=== PATIENT | male | born 1970 | race Caucasian/White ===

== ENCOUNTER 2018-01-14 11:10 | Emergency (ER) | payer OTHER ==
[~2018-01-14] VITALS: Ht 177.8 cm; Wt 70.0 kg
[~2018-01-14 11:10] MED LIST: Z.0.NO CURRENT MEDS
[2018-01-14 11:24] VITALS: BP 158/80; PULSE 97; RESP 18; TEMP 98.5; O2SAT 99
[2018-01-14] MEDS ORDERED: IBUPROFEN 800 MG TAB PO ONE (13:45)
--- NOTE | 2018-01-14 14:03 | RADRPT ---
EXAM DATE/TIME: 01/14/2018 13:47 [place] COMPARISON: No previous studies available for comparison. INDICATIONS : Ran over great toe on right foot with a laundry cart yesterday. MEDICAL HISTORY : None. SURGICAL HISTORY : None. ENCOUNTER: Initial ACUITY: 1 day PAIN SCORE: 10/10 LOCATION: Right Foot, great toe. FINDINGS: Examination of the first digit of the right foot demonstrates no evidence of fracture or dislocation. No radiopaque foreign bodies are seen. The soft tissues are intact. CONCLUSION: No acute disease. Bib Jenkins MD on January 14, 2018 at 14:01 Board Certified Radiologist. This report was verified electronically.
[2018-01-14] MEDS ORDERED: IBUP1TAB7 PO (14:13)
--- NOTE | 2018-01-14 14:13 | PD ---
HPI Chief Complaint: Injury Time Seen by Provider: 13:25 Travel History International Travel<30 days: No Contact w/Intl Traveler<30days: No Traveled to known affect area: No History of Present Illness HPI 47-year-old male presents to the emergency department with complaint of right great toe pain after running over it with a cart yesterday. Denies paresthesias , loss of sensation to the affected toe. Denies fever, vomiting. Has not taken any medication or trying treatments to alleviate symptoms. Rates pain 7/ 10. Worse with palpation and ambulation. Better at rest. Primary care provider is the [facility]. No known allergies. History of diabetes mellitus. Has no other medical complaints. No other modifying factors or associated signs and symptoms. PFSH Past Medical History Diminished Hearing: No Social History Alcohol Use: No Tobacco Use: No Substance Use: No Allergies-Medications (Allergen,Severity, Reaction): Coded Allergies: No Known Allergies (Verified , 12/24/12) Reported Meds & Prescriptions Reported Meds & Active Scripts Active Ibuprofen 800 Mg Tab 800 Mg PO Q6HR PRN Reported No Current Meds (Miscellaneous Medication) Misc Review of Systems Except as stated in HPI: all other systems reviewed are Neg Physical Exam Narrative GENERAL: Well-nourished, well-developed patient, in no acute distress SKIN: Warm and dry. HEAD: Atraumatic. Normocephalic. EYES: Pupils equal and round. No scleral icterus. No injection or drainage. ENT: Mucosa pink and moist. Airway patent. NECK: Trachea midline. CARDIOVASCULAR: Regular rate. RESPIRATORY: No accessory muscle use. GASTROINTESTINAL: Flat. MUSCULOSKELETAL: Right great toe is edematous and with tenderness on palpation; toenail intact and there is some dried blood coming from underneath the toenail ; no subungual hematoma noted; no obvious deformities; toe is pink and warm; no open wounds noted. Noted no obvious deformities. No clubbing. No cyanosis. No edema. NEUROLOGICAL: Awake and alert. Oriented 3. No obvious cranial nerve deficits. Motor grossly within normal limits. Normal speech. PSYCHIATRIC: Appropriate mood and affect; insight and judgment normal. Data Data Last Documented VS Vital Signs Date Time Temp Pulse Resp B/P (MAP) Pulse Ox O2 Delivery O2 Flow Rate FiO2 01/14/18 11:24 98.5 97 18 158/80 (106) 99 Orders Orders Ibuprofen (Motrin) (01/14/18 13:45) Toe (Min 2vws) (01/14/18 ) Ed Discharge Order (01/14/18 14:14) [facility] Medical Decision Making Medical Screen Exam Complete: Yes Emergency Medical Condition: Yes Medical Record Reviewed: Yes Differential Diagnosis Toe fracture, toe contusion, toe injury, toe sprain, subungual hematoma Narrative Course 47-year-old male with right great toe injury. Ibuprofen and right great toe x- ray ordered. 1415: Right great toe x-ray concluded Toe X-Ray 01/14/18 0000 Signed Impressions: Service Date/Time: Sunday, January 14, 2018 13:47 - CONCLUSION: No acute disease. Bib Jenkins MD Discussed x-ray findings with the patient. Ibuprofen prescribed for home. Instructed patient to follow up with primary care provider. Patient verbalizes understanding and agreement with treatment plan. Patient is medically cleared and stable for discharge. Discussed reasons to return to the emergency department. Patient agrees with treatment plan. The patients vital signs are stable and the patient is stable for outpatient follow-up and treatment. Patient discharged home, stable and in no acute distress. 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 Primary Care Physician Patient Instructions: Contusion in Adults (ED), General Instructions Departure Forms: Tests/Procedures, Work Release Enter return to work date: January 17, 2018 Additional Instructions: Ibuprofen or Tylenol as directed and as needed for pain and information Ice to affected toe to reduce pain and inflammation Elevate extremity to reduce pain and inflammation Avoid aggravating activity Increase activity as tolerated Follow-up with primary care provider Follow-up with podiatry as needed Return to the emergency department immediately with worsening of symptoms Med/Other Pt SpecificInfo: Prescription(s) given Scripts Ibuprofen (Ibuprofen) 800 Mg Tab 800 MG PO Q6HR Y for PAIN, #30 TAB 0 Refills Prov: Aruna Clark 01/14/18 Disposition: 01 DISCHARGE HOME Condition: Stable Aruna Clark January 14, 2018 14:13
== END 2018-01-14 14:40 | disposition home or self-care (01) ==
LOC: NEPK 11:10
DX: S99.921A Unspecified injury of right foot, initial encounter (principal); X58.XXXA Exposure to other specified factors, initial encounter; E11.9 Type 2 diabetes mellitus without complications
CPT/HCPCS: 73660; 99283